=== PATIENT | male | born 1960 | race Two or more races ===

== ENCOUNTER 2019-06-20 11:10 | Outpatient (CLI) | payer BC ==
--- NOTE | 2019-06-20 16:23 | Diagnostic Imaging Report ---
Indication: Right groin/thigh pain. Status post Athletic injury. Suspected muscle tear. Technique: MRI of the right hemipelvis/groin/proximal thigh was performed in a 1.5 [employer]ia magnet. Pulse sequences obtained include multiplanar T1 fast spin-echo, proton and T2 fast spin-echo fat saturation and STIR. No gadolinium given. Comparison: None Findings: There is a globular low signal intensity focus 4 cm below the pubic symphysis in the region of the proximal musculotendinous tendon fibers of adductor longus. This most likely represents the retracted tendon, which has become enlarged focally and globular due to the rupture at its proximal insertion. There is a moderate degree of T2 hyperintense edema and notable gap between this muscle and the pubic symphysis. Some fluid tracking from medial to the abductor longus surrounding the gracilis muscle to the proximal thigh. There is T2 hyperintense edema within the upper muscle fibers of adductor longus as expected. There is a T2 hyperintense signal indicative of a strain of the pectineus muscle. Bone marrow signal within the pubic symphysis appears normal. Bone marrow signal within the right femoral head and neck and remainder of the visualized femur is normal. IMPRESSION: Evidence of rupture of the proximal adductor longus tendon from the proximal right pubis insertion with about 4 cm retraction inferiorly. Intervening fluid T2 hyperintense gap extending anteriorly into the subcutaneous fat and medially and inferiorly around the gracilis muscle. Associated strain of the pectineus muscle.
== END 2019-06-20 13:10 | disposition home or self-care (01) ==
LOC: RAD 11:10
DX: R10.2 Pelvic and perineal pain (principal); M79.651 Pain in right thigh; S76.211A Strain of adductor muscle, fascia and tendon of right thigh, initial encounter; X58.XXXA Exposure to other specified factors, initial encounter; Y92.9 Unspecified place or not applicable